=== PATIENT | male | born 1990 | race American Indian/Alaskan Native ===

== ENCOUNTER 2024-12-23 13:07 | Emergency (ER) | payer OTHER, BC ==
[~2024-12-23] VITALS: Ht 190.5 cm; Wt 0.2 kg
[2024-12-23] MEDS ORDERED: OXYCODONE/APAP 5/325 TAB PO ONE (16:00)
[2024-12-23] MEDS ORDERED: ONDANSETRON 4 MG TAB ODT SL ONE (16:00)
[2024-12-23] MEDS ORDERED: OXYCODONE/ACETAMINOPHEN 1 TAB HOME.PACK PO ONE (17:15)
[2024-12-23 17:20] VITALS: BP 126/80
== END 2024-12-23 17:38 | disposition home or self-care (01) ==
LOC: ED 13:07
DX: S82.141A Displaced bicondylar fracture of right tibia, initial encounter for closed fracture (principal); W55.12XA Struck by horse, initial encounter
CPT/HCPCS: 73560; 73700; 99284-25; A9270